=== PATIENT | male | born 1960 | race African-American/Black ===

== ENCOUNTER 2018-08-14 20:39 | Inpatient (IN) | payer MEDICAID, OTHER ==
[~2018-08-14] VITALS: Ht 172.7 cm; Wt 63.5 kg
[2018-08-14] MEDS ORDERED: SODIUM CHLORIDE 0.9% 1,000 ML IV ONE (21:39)
[2018-08-14 23:28] LABS: HEMATOCRIT. 31.2 % (42.0-52.0); HEMOGLOBIN. 9.4 g/dL (14.0-18.0); MEAN CORPUSCULAR HEMOGLOBIN 19.4 pg (28.0-32.0); MEAN CORPUSCULAR VOLUME 64.2 fL (80.0-94.0); PLATELET 333 x1000/uL (130-400); RED BLOOD CELL COUNT 4.86 mill/uL (4.7-6.1); RED CELL DISTRIBUTION WIDTH 30.4 % (11.6-14.6)
[2018-08-14 23:32] LABS: CHLORIDE 98 mEq/L (98-107)
[2018-08-15] MEDS ORDERED: ASPIRIN 325MG EC TABLET PO SCH (01:15)
[2018-08-15] MEDS ORDERED: ACETAMINOPHEN 325MG TABLET PO PRN ×2 (02:15→10:45)
[2018-08-15] MEDS ORDERED: CEFTRIAXONE 1 G PREMIX 50 ML IV ONE (02:30)
[2018-08-15] MEDS ORDERED: AZITHROMYCIN 500 MG in DEXT 5% WATER 250 ML IV SCH (02:30)
[2018-08-15 04:37] LABS: PLATELET ESTIMATE NORMAL
[2018-08-15 08:00] VITALS: BP 109/60
[2018-08-15 09:30] VITALS: BP 109/60
[2018-08-15] MEDS ORDERED: ONDANSETRON HCL 4MG/2ML INJ IV PRN (10:45)
[2018-08-15] MEDS ORDERED: IPRATROPIUM/ALBUTEROL 0.5-3(2.5)MG/3ML NEB HHN PRN (10:45)
[2018-08-15] MEDS ORDERED: PNEUMOCOCCAL 23-VAL P-SAC VAC 0.5 ML IM ONE (10:45)
[2018-08-15] MEDS ORDERED: INFLUENZA VIRUS VACCINE(AFLURIA) 0.5ML SYR IM ONE (10:45)
[2018-08-15] MEDS ORDERED: DEXT 5%/0.45% NACL 1000ML 1,000 ML IV SCH (11:00)
[2018-08-15 12:00] VITALS: BP 127/74
[2018-08-15] MEDS ORDERED: IPRATROPIUM/ALBUTEROL 0.5-3(2.5)MG/3ML NEB HHN SCH (12:00)
[2018-08-15 13:16] VITALS: BP 127/74
[2018-08-15 16:00] VITALS: BP 116/68
[2018-08-15 16:00] LABS: CLARITY URINE TURBID (CLEAR); COLOR URINE YELLOW (YELLOW); KETONES URINE NEGATIVE (NEGATIVE); LEUKOCYTE ESTERASE URINE NEGATIVE (NEGATIVE); NITRITE URINE NEGATIVE (NEGATIVE); OCCULT BLOOD URINE 2+ (NEGATIVE); PROTEIN URINE 2+ (NEGATIVE); SPECIFIC GRAVITY URINE 1.014 (1.005-1.030); UROBILINOGEN URINE 0.2 E.U./dL (0.2-1.0)
[2018-08-15 16:05] LABS: *AMPHETAMINES SCREEN URINE NEGATIVE (NEGATIVE)
[2018-08-15 16:06] LABS: *BARBITURATES SCREEN URINE NEGATIVE (NEGATIVE); *BENZODIAZEPINES SCREEN URINE NEGATIVE (NEGATIVE); *COCAINE SCREEN URINE PRESUMTIVE POSITIVE (NEGATIVE); METHADONE URINE SCREEN NEGATIVE (NEGATIVE); OPIATES URINE SCREEN NEGATIVE (NEGATIVE); PHENCYCLIDINE URINE SCREEN NEGATIVE (NEGATIVE)
[2018-08-15 16:07] LABS: CANNABINOID URINE SCREEN NEGATIVE (NEGATIVE)
[2018-08-15 17:46] LABS: HEPATITIS A AB IGM NEGATIVE (NEGATIVE)
[2018-08-15] MEDS: SODIUM CHLORIDE 0.9% 1,000 ML IV SCH (18:08)
[2018-08-15 18:12] LABS: BG BASE EXCESS -8.7 mmol/L (-2.0-2.0); BG CARBOXYHEMOGLOBIN 0.2 % (0.5-1.5); BG DEOXYHEMOGLOBIN 6.3 % (0.0-5.0); BG HCO3 ACT 13.7 mmol/L (22.0-26.0); BG METHEMOGLOBIN 0.4 % (0.0-1.5); BG OXYGEN SATURATION 93.7 % (92.0-98.5); BG OXYHEMOGLOBIN 93.1 % (94.0-97.0); BG PCO2 20.4 mmHg (35.0-45.0); BG PH 7.446 (7.350-7.450); BG PO2 70.6 mmHg (75.0-100.0); BG SAMPLE SITE LEFT RADIAL; BG TOTAL HEMOGLOBIN 9.5 g/dL (12.0-18.0); BG VENT MODE ROOM AIR
[2018-08-15] MEDS: CITRIC ACID/SODIUM CITRATE SOLN 30ML UDC PO SCH (18:35)
[2018-08-15 20:00] VITALS: BP 120/72
[2018-08-15] MEDS: GUAIFENESIN 600MG ER TABLET PO SCH (21:22)
[2018-08-15] MEDS: IPRATROPIUM/ALBUTEROL 0.5-3(2.5)MG/3ML NEB HHN SCH (21:58)
[2018-08-15] MEDS: BUDESONIDE 0.5MG/2ML NEB HHN SCH (21:58)
[2018-08-16] VITALS: BP 106/61
[2018-08-16] MEDS: IPRATROPIUM/ALBUTEROL 0.5-3(2.5)MG/3ML NEB HHN SCH ×4 (02:50→21:17)
[2018-08-16 04:00] VITALS: BP 118/78
[2018-08-16] MEDS: CEFTRIAXONE 1 G PREMIX 50 ML IV SCH (04:57)
[2018-08-16 06:21] LABS: CHLORIDE 101 mEq/L (98-107)
[2018-08-16 06:28] LABS: HEMATOCRIT. 28.1 % (42.0-52.0); MEAN CORPUSCULAR HEMOGLOBIN 20.7 pg (28.0-32.0); MEAN CORPUSCULAR VOLUME 64.6 fL (80.0-94.0); MEAN PLATELET VOLUME 9.2 fl (7.4-10.4); PLATELET 409 x1000/uL (130-400); RED BLOOD CELL COUNT 4.35 mill/uL (4.7-6.1); RED CELL DISTRIBUTION WIDTH 30.5 % (11.6-14.6)
[2018-08-16 06:30] LABS: PHOSPHORUS 4.4 mg/dL (2.5-4.9)
[2018-08-16 06:48] LABS: CREATINE KINASE 2267 IU/L (39-308)
[2018-08-16 08:07] VITALS: BP 112/72
[2018-08-16] MEDS: GUAIFENESIN 600MG ER TABLET PO SCH ×2 (08:12→20:47)
[2018-08-16] MEDS: AZITHROMYCIN 500 MG TABLET PO SCH (08:12)
[2018-08-16] MEDS: ASPIRIN 81MG TABLET PO SCH (08:12)
[2018-08-16] MEDS: CITRIC ACID/SODIUM CITRATE SOLN 30ML UDC PO SCH ×3 (08:12→18:14)
[2018-08-16] MEDS: BUDESONIDE 0.5MG/2ML NEB HHN SCH ×2 (09:21→21:18)
[2018-08-16] MEDS: SODIUM CHLORIDE 0.9% 1,000 ML IV SCH (09:25)
[2018-08-16 10:35] LABS: PLATELET ESTIMATE NORMAL
[2018-08-16 12:00] VITALS: BP 127/78
[2018-08-16 16:00] VITALS: BP 115/70
[2018-08-16 18:56] LABS: HEPATITIS B SURFACE ANTIGEN REACTIVE PEND CONFIR
[2018-08-16 20:00] VITALS: BP 125/73
[2018-08-17] VITALS: BP 118/76
[2018-08-17] MEDS: IPRATROPIUM/ALBUTEROL 0.5-3(2.5)MG/3ML NEB HHN SCH ×2 (01:50→09:31)
[2018-08-17 04:00] VITALS: BP 114/72
[2018-08-17] MEDS: CEFTRIAXONE 1 G PREMIX 50 ML IV SCH (04:59)
[2018-08-17] MEDS: SODIUM CHLORIDE 0.9% 1,000 ML IV SCH (04:59)
[2018-08-17 07:02] LABS: HEMOGLOBIN. 7.8 g/dL (14.0-18.0); MEAN CORPUSCULAR HEMOGLOBIN 20.4 pg (28.0-32.0); PLATELET 462 x1000/uL (130-400); RED BLOOD CELL COUNT 3.84 mill/uL (4.7-6.1); RED CELL DISTRIBUTION WIDTH 30.2 % (11.6-14.6)
[2018-08-17 08:00] VITALS: BP 118/68
[2018-08-17] MEDS: CITRIC ACID/SODIUM CITRATE SOLN 30ML UDC PO SCH (09:29)
[2018-08-17] MEDS: ASPIRIN 81MG TABLET PO SCH (09:30)
[2018-08-17] MEDS: AZITHROMYCIN 500 MG TABLET PO SCH (09:30)
[2018-08-17] MEDS: GUAIFENESIN 600MG ER TABLET PO SCH (09:30)
[2018-08-17] MEDS: BUDESONIDE 0.5MG/2ML NEB HHN SCH (09:31)
[2018-08-17 10:13] LABS: HIV SCREEN 4G Non Reactive (Non Reactive)
[2018-08-17 11:55] LABS: PHOSPHORUS 3.8 mg/dL (2.5-4.9)
[2018-08-17 12:00] VITALS: BP 104/58
[2018-08-17] MEDS ORDERED: ISOSORB DINIT/HYDRALAZINE HCL 20/37.5MG TABLET PO SCH (13:00)
[2018-08-17 13:07] LABS: A/G RATIO 0.5 (0.7-1.7); ALPHA-1-GLOBULIN 0.6 g/dL (0.0-0.4); ALPHA-2-GLOBULIN 1.5 g/dL (0.4-1.0); GAMMA GLOBULINS 1.1 g/dL (0.4-1.8); GLOBULIN TOTAL 4.2 g/dL (2.2-3.9); M-SPIKE 0.4 g/dL (Not Observed); TOTAL PROTEIN SERUM 6.2 g/dL (6.0-8.5)
[2018-08-17] MEDS ORDERED: POTASSIUM CHLORIDE 20MEQ TABLET SR PO NR (13:15)
[2018-08-17 13:44] VITALS: BP 104/58
[2018-08-17 13:55] LABS: PLATELET ESTIMATE INCREASED
[2018-08-18 05:18] LABS: COMPLEMENT C3 171 mg/dL (82-167)
[2018-08-18 08:17] LABS: HBSAG SCREEN Negative (Negative)
== END 2018-08-17 15:20 | disposition home or self-care (01) | DRG 720 ==
LOC: ER 20:39 → 8WST 08-15 01:24 → EDBEDREQDT 08-15 01:29 → EDBEDREQ 08-15 01:29 → EDBEDREQTM 08-15 01:29 → ENRESERV 08-15 07:58
PROVIDERS: ADMIT Internal Medicine; ATTEND Internal Medicine
DX: A41.9 Sepsis, unspecified organism (principal); J96.00 Acute respiratory failure, unspecified whether with hypoxia or hypercapnia; E43 Unspecified severe protein-calorie malnutrition; N17.9 Acute kidney failure, unspecified; J18.1 Lobar pneumonia, unspecified organism; E87.2 Acidosis; I50.22 Chronic systolic (congestive) heart failure; D50.9 Iron deficiency anemia, unspecified; F17.210 Nicotine dependence, cigarettes, uncomplicated; R74.0 Nonspecific elevation of levels of transaminase and lactic acid dehydrogenase [LDH]; M94.0 Chondrocostal junction syndrome [Tietze]; N18.9 Chronic kidney disease, unspecified; M62.82 Rhabdomyolysis; E87.1 Hypo-osmolality and hyponatremia; J44.0 Chronic obstructive pulmonary disease with (acute) lower respiratory infection; F14.129 Cocaine abuse with intoxication, unspecified; H54.40 Blindness, one eye, unspecified eye; Z82.49 Family history of ischemic heart disease and other diseases of the circulatory system; Z59.0 Homelessness; Z71.51 Drug abuse counseling and surveillance of drug abuser; Z71.6 Tobacco abuse counseling; Z68.21 Body mass index [BMI] 21.0-21.9, adult
CPT/HCPCS: 36415; 36600; 71045; 71250; 76770; 80048; 80061; 80305; 82375; 82533; 82550; 82728; 82805; 83036; 83540; 83550; 83735; 83880; 83935; 84100; 84155; 84165; 84443; 84484; 86160; 86705; 86709; 86803; 87015; 87045; 87340; 87389; 87427; 87449; 90686; 90732; 93005; 93306; 93970; 94640; 96374; 96375; 97162; 99285; J0456; J0696; J7030; J7060; J7620; J7626